=== PATIENT | male | born 2000 | race Caucasian/White ===

== ENCOUNTER 2021-02-24 13:55 | Emergency (ER) | payer MEDICAID, SELFPAY ==
[2021-02-24 13:55] VITALS: BP 135/98; PULSE 71; RESP 18; TEMP 36.7; O2SAT 98; BMI 34.4
--- NOTE | 2021-02-24 14:09 | RAD_ITS ---
STUDY: X-RAY - RIGHT KNEE REASON FOR EXAM: Male, 20 years old. Pain TECHNIQUE: 5 view(s) of the knee. COMPARISON: None. FINDINGS: No apparent knee joint effusion. Periarticular soft tissues normal. No apparent DJD. No fracture or dislocation. RAD/Knee 4 or More Views IMPRESSION: No acute radiographic abnormality and no significant degenerative features of the knee. Electronically Signed: Ej Jain MD at 14:33 EDT Tel , Service support ,
--- NOTE | 2021-02-24 15:37 | ED.VIS.LOWEX ---
HPI History of Present Illness Chief Complaint: Lower Extremity Injury Informant: patient Narrative Narrative: Patient presents with right knee pain. He states yesterday he was walking he felt a pop in the lateral aspect of his right knee and it is hurt ever since. He did not have a impact with the ground causing this. Bearing weight makes it a little bit worse. Rest makes it little better. PFSH PFSH Home Medications acetaminophen-codeine 1 tab PO Q6H PRN PRN #10 tablet 12/10/14 [Rx Last Taken Unknown] amoxicillin 500 mg PO TID #30 tab 12/10/14 [Rx Last Taken Unknown] dextroamphetamine-amphetamine [Adderall 20 mg Tablet] 20 mg PO DAILY 12/10/14 [History Last Taken Unknown] naproxen [Naprosyn] 500 mg PO BID PRN #20 tab 02/24/21 [Rx Last Taken Unknown] Allergy/AdvReac Type Severity Reaction Status Date / Time No Known Allergies Allergy Verified 02/24/21 13:58 Social History Smoking Status: Never smoker ROS ROS ED Constitutional Constitutional ED: Denies fever(s) Cardiovascular Cardiovascular: Denies chest pain Respiratory/Chest Respiratory/Chest: Denies dyspnea Musculoskeletal Musculoskeletal: Reports arthralgias Integumentary Denies Abrasions or rash EXAM Physical Exam Const Vital Signs: 02/24/21 13:55 Temperature 98.1 F Temperature Source Temporal Pulse Rate 71 Respiratory Rate 18 Blood Pressure 135/98 H Blood Pressure Mean 110 Pulse Ox 98 Oxygen Delivery Method Room Air Positive well nourished and well developed General Appearance ED: well developed HEENT normocephalic and atraumatic Neck full ROM Thyroid: Negative for tender Resp normal respiratory effort Back/Spine no CVA tenderness Cervical Spine: Negative for cervical spine tenderness Thoracic Spine / Upper Back: Negative for thoracic spinal tenderness Lumbar Spine / Lower Back: Negative for lumbar spinal tenderness Extremity normal to inspection and full ROM Extremity Narrative: Patient's right knee does have some very mild lateral joint line tenderness. But he has no injury no pain with compression of the meniscus. He does have some pain with strain of his lateral collateral ligament although there is no laxity. There is no erythema or skin changes. The knee is stable to exam. Neuro no sensory deficits noted Sensorium / Orientation: alert Motor Exam: strength abnormal Skin Rashes: no rashes MDM MDM MDM Narrative Medical decision making narrative: Patient's x-ray showed no sign of acute process. These were looked at by me and read by radiology. We will use ice rest and nonsteroidals. I think he likely had a ligamentous injury. He does have some tenderness along the iliotibial band. We discussed follow-up and rest. Radiography Diagnostic Testing: Radiology Impression Knee X-Ray 02/24/21 14:09 IMPRESSION: No acute radiographic abnormality and no significant degenerative features of the knee. Electronically Signed: Ej Jain MD at 14:33 EDT Tel , Service support , Discharge Plan Triage Chief Complaint: Lower Extremity Injury ED Provider: Anil Griffith Dx/Rx/DC Orders Clinical Impression: Strain of right knee Instructions: ED Knee Sprain Prescriptions: New naproxen [Naprosyn] 500 mg tablet 500 mg PO BID PRN (Reason: pain) Qty: 20 RF: 0 No Action dextroamphetamine-amphetamine [Adderall] 20 MG tablet 20 mg PO DAILY RF: 0 acetaminophen-codeine 1 TABLET tablet 1 tab PO Q6H PRN PRN (Reason: Pain) Qty: 10 RF: 0 amoxicillin 500 MG tablet 500 mg PO TID Qty: 30 RF: 0 Primary Care Provider: Care Physician,No Primary Referrals: Rojas Dewitt MD [STAFF PHYSICIAN] - 1 Week Care Physician,No Primary [Primary Care Provider] - Disposition Disposition: Home, Self Care
== END 2021-02-24 15:52 | disposition home or self-care (01) ==
PROVIDERS: Emergency Provider Emergency Medicine
DX: S83.421A Sprain of lateral collateral ligament of right knee, initial encounter (principal); X58.XXXA Exposure to other specified factors, initial encounter; Y93.01 Activity, walking, marching and hiking; Y92.9 Unspecified place or not applicable; Y99.9 Unspecified external cause status
CPT/HCPCS: 73564; 99282